=== PATIENT | male | born 1960 | race Caucasian/White ===

== ENCOUNTER → 2021-05-20 11:11 | Outpatient (CLI) | payer OTHER, SELFPAY ==
[2021-05-20 13:39] LABS: COVID19 -Nasal RAPID Negative (Negative)
== END ==
PROVIDERS: PCP Family Medicine; Visit Provider Nurse Practitioner
DX: Z20.822 Contact with and (suspected) exposure to COVID-19 (principal); Z01.812 Encounter for preprocedural laboratory examination
CPT/HCPCS: 87635

== ENCOUNTER 2021-05-22 06:26 | Day surgery (SDC) | payer OTHER, SELFPAY ==
[2021-05-22] VITALS (11 sets, daily range): BP systolic 113–128; BP diastolic 26–83; PULSE 50–76; RESP 14–16; TEMP 36–37.1; O2SAT 95–99; BMI 21.1
[2021-05-22] MEDS: LACTATED RINGERS 1,000 ML 42 ML IV (07:13)
--- NOTE | 2021-05-22 07:53 | PM.PREOP ---
Pre-operative Note Interval Note History & Physical reviewed/Exam performed by Physician: Yes Changes to H&P: No
[2021-05-22] MEDS: CEFAZOLIN 1 GM VIAL 2 GM IV (08:04)
--- NOTE | 2021-05-22 08:23 | SUR.OPER ---
Supine on padded OR bed, head on pillow, arms secured on padded arm boards at <90 degrees abduction, legs uncrossed, safety belt at thigh, tape over blanket over lower legs.
[2021-05-22] MEDS: BUPIVACAINE LIPOSOME 266 MG/20 ML VIAL INJ (08:29)
[2021-05-22] MEDS: BUPIVACAINE 0.25% (PF) VIAL 30 ML INJ (08:29)
[2021-05-22] MEDS: EPINEPHrine 1 MG/ML 0.15 MG INJ (08:31)
--- NOTE | 2021-05-22 09:54 | PM.OP.1 ---
Operative Date/Time/Diagnoses Date of procedure: 05/22/21 Time of procedure: 09:54 Pre-op diagnosis: 1. Right hydrocele. 2. Desires sterility. Post-op diagnosis: same Procedure & Clinicians Procedure: 1. Right hydrocelectomy. 2. Vasectomy. Same procedure as scheduled: Yes Indications: 1. Right hydrocele. 2. Desire for sterility. Surgeon: Edna Sanders Click Yes if Unassisted: Yes Anesthesia Type: General and Local (1.33% Exparel) Operative Notes Findings: 1. Normal tissue planes other than slightly turbid straw-colored fluid between the tunica albuginea and the tunica vaginalis of the right hemiscrotum. 2. A 3 x 5 mm scrotal arleen was removed. Closure Type: primary Specimen(s): none sent Estimated Blood Loss (mL): 1 Blood products transfused: none Procedure in detail: The patient was positioned supine was administered general anesthesia. The lower abdomen, genitalia, and groin were then prepped and draped in sterile fashion. The midline scrotal raphae was then infiltrated with local anesthetic. The needle tip cautery pen was then used to divide the skin and subcutaneous dartos fascia to level of the tunica vaginalis of the right hemiscrotum. The appropriate plane was then developed in the entire structure of the tunica vaginalis and its contents were delivered from the right hemiscrotum. The hydrocele sac was then divided longitudinally in this contents drained. Scrotal parole mentioned above was then removed. Next the right vas was identified and isolated the overlying sheath was divided and vas proper was brought out from within. Small stainless steel the clips were applied proximally and distally. An intervening segment of approximately 1 cm was then excised and discarded. The ends and lumen were cauterized. The same steps and maneuvers were performed on the left side. Next the tunica vaginalis of the hydrocele was reflected posteriorly and a ?bookmobile librarian? closure was then conducted using a running horizontal mattress of 2-0 Monocryl. The right testis was then repositioned in the right hemiscrotum and was secured at the inferior pole and the superior pole to the posterior wall with the same suture. An area at the inferolateral right hemiscrotum was then infiltrated with local anesthetic. A fenestrated 10 Spanish drain was then passed through this location and positioned appropriately. The distal end of the drain was trimmed significantly for proper positioning within the right hemiscrotum. The drain was secured to the skin with 2-0 silk suture in usual fashion. Jc's fascia was then reapproximated using a running vertical mattress of 2-0 Monocryl. The skin was reapproximated using a running horizontal mattress of 4-0 Monocryl. The skin surface was cleaned and dried and antibiotic ointment was applied to the incision line. Dry sterile fluffs were then applied to the scrotum and the patient was fitted with an athletic supporter. Patient was then awakened, transferred to [facility], transferred to recovery in stable condition. Complications: none Post-operative Condition: stable Disposition: PACU Plan for aftercare: Discharge home.
--- NOTE | 2021-05-22 10:25 | SUR.PHASEII ---
Pt educated on use and cleaning OSWALD drain, and monitoring outpt. verbalized understanding and josie call ofc tuesday to report drainage if any noted. VSS, Verbalized understanding of dc insructions
== END 2021-05-22 10:27 | disposition home or self-care (01) ==
PROVIDERS: PCP Family Medicine; Referring Provider Specialist; Visit Provider Specialist
PROC: (CPT 55040; principal; 2021-05-22 07:45)
PROC: (CPT 55250; 2021-05-22 07:45)
DX: N43.3 Hydrocele, unspecified (principal); Z30.2 Encounter for sterilization; N40.1 Benign prostatic hyperplasia with lower urinary tract symptoms; N13.8 Other obstructive and reflux uropathy; Z80.42 Family history of malignant neoplasm of prostate
CPT/HCPCS: 55040; 55250; C9290; J0171; J0360; J0690; J1100; J1885; J2250; J2405; J2704; J3010

== ENCOUNTER → 2021-06-04 10:47 | Outpatient (CLI) | payer OTHER, SELFPAY ==
--- NOTE | 2021-06-04 10:48 | DI.RAD.S_ITS ---
PROCEDURE: XR KUB INDICATIONS: Hematuria TECHNIQUE: One view of the abdomen acquired. COMPARISON: None. FINDINGS: Surgical changes and devices: None. Bowel: Bowel gas pattern is normal. Moderate fecal debris. Soft tissues: No suspicious abdominal calcifications. Visualized solid organ contours appear normal in size. Bones: No suspicious bony lesions. IMPRESSION: Moderate fecal debris. No suspicious calcifications identified. Dictated by: Saud Decker M.D. on 06/04/2021 at 12:31 Approved by: Saud Decker M.D. on 06/04/2021 at 12:31
[2021-06-04 13:07] LABS: Prostate Specific Antigen 1.12 ng/mL (0.10-4.00)
== END ==
PROVIDERS: PCP Family Medicine; Referring Provider Specialist; Visit Provider Specialist
DX: R31.9 Hematuria, unspecified (principal); N13.8 Other obstructive and reflux uropathy; N40.1 Benign prostatic hyperplasia with lower urinary tract symptoms; Z80.42 Family history of malignant neoplasm of prostate
CPT/HCPCS: 36415; 74018; 84153

== ENCOUNTER → 2021-06-18 14:05 | Outpatient (CLI) | payer OTHER, SELFPAY ==
[2021-06-18 14:28] LABS: Semen Sperm Prescence Post-Vas Present (ABSENT)
== END ==
PROVIDERS: PCP Family Medicine; Referring Provider Specialist; Visit Provider Specialist
DX: Z09 Encounter for follow-up examination after completed treatment for conditions other than malignant neoplasm (principal); Z98.52 Vasectomy status; N40.1 Benign prostatic hyperplasia with lower urinary tract symptoms; N13.8 Other obstructive and reflux uropathy; Z80.42 Family history of malignant neoplasm of prostate
CPT/HCPCS: 51798; 81002; 89321